=== PATIENT | male | born 1970 | race African-American/Black ===

== ENCOUNTER 2023-08-01 22:06 | Inpatient (IN) | payer OTHER, SELFPAY ==
[2023-08-01] MEDS ORDERED: Amlodipine 5 MG TAB ONE (22:36)
[2023-08-01] MEDS ORDERED: Aspirin Chewable 81 MG TAB ONE (22:36)
[2023-08-01] MEDS ORDERED: Lisinopril 20 MG TAB PO SCH (23:00)
[2023-08-01 23:23] LABS: #Eosinphils 0.1 10x3/uL (0.0-0.5); #Monocytes 0.6 10x3/uL (0.0-1.1); #Neutrophils 6.1 10x3/uL (1.5-8.4); %Basophils 0.4 % (0.0-2.0); %Eosinophils 0.7 % (0.0-6.0); %Lymphocytes 20.6 % (18.0-47.0); %Monocytes 6.4 % (0.0-10.0); %Neutrophils 71.5 % (40.0-75.0); Hematocrit 39.8 % (38.8-50.0); Mean Corpuscular HGB CONC 32.7 g/dL (32.0-36.0); Mean Corpuscular Hemoglobin 27.7 pg (27.0-33.0); Mean Corpuscular Volume 84.9 fl (81.2-95.1); Mean Platelet Volume 9.6 fl (7.4-10.4); Platelet Count 322 10x3/uL (150-450); RBC Distribution Width 13.3 % (11.5-14.5); Red Blood Cell (RBC) Count 4.69 10x6/uL (4.32-5.72); White Blood Cell (WBC) Count 8.5 10x3/uL (3.5-10.5)
[2023-08-01 23:56] LABS: ALT (SGPT) 28 U/L (8-55); AST (SGOT) 37 U/L (5-34); Albumin 4.7 g/dL (3.5-5.0); Alkaline Phosphatase 48 U/L (40-110); Anion Gap 15 mmol/L (10-20); BUN (Urea Nitrogen) 14 mg/dL (8.4-25.7); Bilirubin, Total 0.4 mg/dL (0.2-1.2); Calc. Creatinine Clearance 0 mL/min (70-130); Calcium 9.3 mg/dL (7.8-10.44); Carbon Dioxide 27 mmol/L (22-29); Chloride 100 mmol/L (98-107); Estimated GFR 98; Globulin 3.7 g/dL (2.4-3.5); Glucose 96 mg/dL (70-105); Lipase 30 U/L (8-78); Protein, Total 8.4 g/dL (6.0-8.3); Sodium 138 mmol/L (136-145)
[2023-08-02 00:02] LABS: Troponin I 0.039 ng/mL (< 0.028)
[2023-08-02] MEDS ORDERED: Morphine 4 MG/ML VIAL ONE (00:08)
[2023-08-02] MEDS ORDERED: Nitroglycerin 2% Ointment 1 INCH/1 GM Packet ONE (00:09)
[2023-08-02] MEDS ORDERED: Ondansetron PF 4 MG/2 ML Vial ONE (00:10)
[2023-08-02 01:11] VITALS: BMI 28.7
[2023-08-02] MEDS ORDERED: Nitroglycerin 50 MG/250 ML BOT 250 ML ONE (01:18)
[2023-08-02] MEDS ORDERED: Acetaminophen 325 MG TAB PO PRN (01:59)
[2023-08-02] MEDS ORDERED: Ondansetron PF 4 MG/2 ML Vial IVP PRN (01:59)
[2023-08-02] MEDS ORDERED: Ondansetron ODT 4 MG TAB PO PRN (01:59)
[2023-08-02] MEDS ORDERED: Nitroglycerin 0.4 MG TAB (25 Tab Bottle) SL PRN (02:05)
[2023-08-02] MEDS ORDERED: Nitroglycerin 50 MG/250 ML BOT 250 ML IVPB SCH (02:15)
[2023-08-02 02:55] LABS: Troponin I 0.047 ng/mL (< 0.028)
[2023-08-02 03:14] LABS: Anion Gap 17 mmol/L (10-20); BUN (Urea Nitrogen) 13 mg/dL (8.4-25.7); Calc. Creatinine Clearance 123 mL/min (70-130); Calcium 9.1 mg/dL (7.8-10.44); Carbon Dioxide 25 mmol/L (22-29); Cardiac Risk 4.2 (Less than 4.5); Chloride 101 mmol/L (98-107); Cholesterol 163 mg/dl (< 200 Desired); Estimated GFR 102; Glucose 112 mg/dL (70-105); HDL Cholesterol 39 mg/dL (>60 Neg Risk); LDL Cholesterol, Calculated 102 mg/dL; Potassium 3.6 mmol/L (3.5-5.1); Sodium 139 mmol/L (136-145); Triglycerides 108 mg/dL (Less than 150)
[2023-08-02 05:50] LABS: Troponin I 0.038 ng/mL (< 0.028)
[2023-08-02] MEDS: Carvedilol 3.125 MG TAB PO SCH ×2 (08:01→17:06)
[2023-08-02] MEDS ORDERED: Amlodipine 5 MG TAB ONE (09:11)
[2023-08-02] MEDS ORDERED: Enoxaparin 40 MG (0.4 mL) SYRINGE ONE (09:11)
[2023-08-02] MEDS ORDERED: Aspirin Chewable 81 MG TAB ONE (09:11)
[2023-08-02] MEDS: Amlodipine 10 MG TAB PO SCH (09:20)
[2023-08-02] MEDS: Aspirin Chewable 81 MG TAB PO SCH (09:21)
[2023-08-02] MEDS: Lisinopril 20 MG TAB PO SCH (09:21)
[2023-08-02] MEDS: Enoxaparin 40 MG (0.4 mL) SYRINGE SC SCH (09:21)
[2023-08-02] MEDS ORDERED: Carvedilol 3.125 MG TAB ONE (17:02)
[2023-08-03] MEDS: Lisinopril 20 MG TAB PO SCH (08:26)
[2023-08-03] MEDS: Aspirin Chewable 81 MG TAB PO SCH (08:26)
[2023-08-03] MEDS: Amlodipine 10 MG TAB PO SCH (08:26)
[2023-08-03] MEDS: Enoxaparin 40 MG (0.4 mL) SYRINGE SC SCH (08:26)
[2023-08-03] MEDS ORDERED: Hydrochlorothiazide 25 MG TAB PO SCH (09:00)
[2023-08-03] MEDS ORDERED: Lisinopril 20 MG TAB PO SCH (09:30)
[2023-08-03 11:56] VITALS: BP 162/83; TEMP 98.2
[2023-08-03] MEDS ORDERED: CLOBETASOL 0.05% TOP SCH ×2 (13:15→21:00)
[2023-08-03] MEDS ORDERED: Clobetasol 0.05% Cream 15 gm Tube TOP SCH ×2 (13:30→21:00)
[2023-08-03] MEDS ORDERED: Atorvastatin Calcium 10 MG TAB PO SCH (21:00)
[2023-08-04] MEDS ORDERED: Amlodipine 10 MG TAB PO SCH (09:00)
[2023-08-04] MEDS ORDERED: Lisinopril 20 MG TAB PO SCH (09:00)
== END 2023-08-03 15:08 | DRG 282 ==
LOC: CSHERS 22:06 → EEVIPCON 08-02 00:17 → CSHERHOLD 08-02 00:17 → CSHTELE 08-02 18:11
PROVIDERS: ADMIT Family Medicine; ATTEND Internal Medicine
PROC: 5A09357 Assistance with Respiratory Ventilation, Less than 24 Consecutive Hours, Continuous Positive Airway Pressure (ICD-10-PCS; principal; 2023-08-02)
DX: I16.1 Hypertensive emergency (principal); I21.A1 Myocardial infarction type 2; R07.89 Other chest pain; Z91.041 Radiographic dye allergy status; Z91.013 Allergy to seafood; Z79.899 Other long term (current) drug therapy; I10 Essential (primary) hypertension; Z98.890 Other specified postprocedural states; G47.33 Obstructive sleep apnea (adult) (pediatric); E78.5 Hyperlipidemia, unspecified; Z83.3 Family history of diabetes mellitus; Z82.49 Family history of ischemic heart disease and other diseases of the circulatory system; E66.9 Obesity, unspecified; Z68.28 Body mass index [BMI] 28.0-28.9, adult
CPT/HCPCS: 71045; 80048; 80053; 80061; 83690; 83735; 83880; 84484; 85025; 93005; 93010; 93306; 94660; 96374; 96375; J1650; J2270; J2405